=== PATIENT | female | born 1975 | race Hispanic/Latino ===

== ENCOUNTER 2023-08-14 23:43 | Emergency (ER) | payer OTHER ==
[~2023-08-14] VITALS: Ht 144.8 cm; Wt 72.6 kg
[2023-08-15] MEDS ORDERED: CYCLOBENZAPRINE HCL 10 MG TAB PO ONE (00:45)
[2023-08-15] MEDS ORDERED: CYCLOBENZAPRINE HCL 10 MG TAB ONE (00:52)
[2023-08-15] MEDS ORDERED: CYCLOBENZAPRINE5 MG PO (01:01)
[2023-08-15 02:15] VITALS: BP 134/88; PULSE 72; RESP 18; TEMP 98; O2SAT 100
== END 2023-08-15 02:15 | disposition home or self-care (01) ==
LOC: FSED 23:48
DX: M79.18 Myalgia, other site (principal); M79.651 Pain in right thigh; E11.9 Type 2 diabetes mellitus without complications; J45.909 Unspecified asthma, uncomplicated
CPT/HCPCS: 80053; 80076; 81003; 85025; 93971; 99283